=== PATIENT | female | born 1960 | race Caucasian/White ===

== ENCOUNTER 2023-11-16 15:39 | Emergency (ER) | payer OTHER ==
[2023-11-16 16:03] VITALS: TEMP 98
--- NOTE | 2023-11-16 17:23 | ED ---
ENT HPI - General Chief complaint: ENT Stated complaint: obstruction in throat Time Seen by Provider: 11/16/23 16:30 Source: patient, RN notes reviewed Mode of arrival: ambulatory Limitations: no limitations - History of Present Illness Initial comments: 63-year-old female presenting with foreign body sensation in throat x 2 days. States she was drinking tea with chopped up pine needles and shortly afterwards began to have sensation of something stuck in her throat. She has had trouble swallowing since then. She also has tenderness in the middle of her neck. Denies difficulty breathing or speaking. Denies nausea or vomiting. She has attempted carbonated beverages at home with no success - Related Data Allergies Allergy/AdvReac Type Severity Reaction Status Date / Time No Known Allergies Allergy Verified 11/16/23 16:03 Review of Systems ROS Statement: Those systems with pertinent positive or pertinent negative responses have been documented in the HPI. ROS Other: All systems not noted in ROS Statement are negative. Past Medical History Past Medical History: No Reported History History of Any Multi-Drug Resistant Organisms: None Reported Past Surgical History: Bladder Surgery, Section, Hernia Repair, Orthopedic Surgery, Tonsillectomy Past Psychological History: No Psychological Hx Reported Smoking Status: Never smoker Past Alcohol Use History: None Reported Past Drug Use History: None Reported General Exam Limitations: no limitations General appearance: alert, in no apparent distress Head exam: Present: atraumatic, normocephalic, normal inspection Eye exam: Present: normal appearance, PERRL, EOMI. Absent: scleral icterus, conjunctival injection, periorbital swelling ENT exam: Present: normal exam, normal oropharynx, mucous membranes moist Neck exam: Present: normal inspection, tenderness (There is point tenderness in the middle of neck. No skin changes, warmth, or overlying erythema). Absent: meningismus, lymphadenopathy Respiratory exam: Present: normal lung sounds bilaterally. Absent: respiratory distress, wheezes, rales, rhonchi, stridor Cardiovascular Exam: Present: regular rate, normal rhythm, normal heart sounds. Absent: systolic murmur, diastolic murmur, rubs, gallop, clicks GI/Abdominal exam: Present: soft, normal bowel sounds. Absent: distended, tenderness, guarding, rebound, rigid Course Vital Signs 11/16/23 11/16/23 15:59 19:19 Temperature 98 F Pulse Rate 71 76 Respiratory 18 16 Rate Blood Pressure 136/85 162/94 O2 Sat by Pulse 95 97 Oximetry Medical Decision Making - Medical Decision Making Was pt. sent in by a medical professional or institution (, [facility], HOME CARE SCHEDULER, urgent care, hospital, or long term...) When possible be specific @ -No Did you speak to anyone other than the patient for history (EMS, parent, family, police, friend...)? What history was obtained from this source @ -No Did you review nursing and triage notes (agree or disagree)? Why? @ -I reviewed and agree with nursing and triage notes Were old charts reviewed (outside hosp., previous admission, EMS record, old EKG, old radiological studies, urgent care reports/EKG's, long term records)? Report findings @ -No old charts were reviewed Differential Diagnosis (chest pain, altered mental status, abdominal pain women, abdominal pain men, vaginal bleeding, weakness, fever, dyspnea, syncope, headache, dizziness, GI bleed, back pain, seizure, CVA, palpatations, mental health, musculoskeletal)? @ -Foreign body of throat, retropharyngeal abscess, esophageal mass, strep pharyngitis EKG interpreted by me (3pts min.). @ -None X-rays interpreted by me (1pt min.). @ -X-ray of soft tissue of neck reveals 15 mm soft tissue density of indeterminate etiology, cannot exclude radiopaque foreign body and inferior aspect of oropharynx. CT interpreted by me (1pt min.). @ - CT revealed 5 mm mass suspected involving right aryepiglottic fold. Neoplasm not excluded and direct inspection is recommended U/S interpreted by me (1pt. min.). @ -None done What testing was considered but not performed or refused? (CT, X-rays, U/S, labs)? Why? @ -None What meds were considered but not given or refused? Why? @ -None Did you discuss the management of the patient with other professionals (professionals i.e. SHANTE Major, HOME CARE SCHEDULER, lab, RT, psych nurse, social services manager, biazzi nitrator operator, teacher, agricultural loan officer, case management assistant)? Give summary @ -I spoke with Dr. Ogden ER physician from [facility] who accepts ER to ER transfer at this time for throat mass. Patient will need ENT consultation and likely endoscopy. Was smoking cessation discussed for >3mins.? @ -No Was critical care preformed (if so, how long)? @ -No Were there social determinants of health that impacted care today? How? (Homelessness, low income, unemployed, alcoholism, drug addiction, trans portation, low edu. Level, literacy, decrease access to med. care, half-way, rehab)? @ -No Was there de-escalation of care discussed even if they declined (Discuss DNR or withdrawal of care, Hospice)? DNR status @ -No What co-morbidities impacted this encounter? (DM, HTN, Smoking, COPD, CAD, Cancer, CVA, ARF, Chemo, Hep., AIDS, mental health diagnosis, sleep apnea, morbid obesity)? @ -None Was patient admitted / discharged? Hospital course, mention meds given and route, prescriptions, significant lab abnormalities, going to OR and other pertinent info. @ -Patient was transferred to [facility] ER. Patient was seen and evaluated for foreign body sensation in throat x 2 days. Patient is able to tolerate secretions. Vital signs are stable. X-ray reveals 15 mm soft tissue density of indeterminate etiology, cannot exclude radiopaque foreign body in inferior aspect of oropharynx. CT then revealed 5 mm mass suspected involving right aryepiglottic fold, or neoplasm not excluded and direct inspection is recommended. I spoke with Dr. Ogden ER physician from [facility] who accepts ER to ER transfer at this time for throat mass. Patient will need ENT consultation and likely endoscopy. Patient is agreeable to plan at this time and opts for transfer via private vehicle. Case discussed with my attending Dr. Wing. Undiagnosed new problem with uncertain prognosis? @ -No Drug Therapy requiring intensive monitoring for toxicity (Heparin, Nitro, Insulin, Cardizem)? @ -No Were any procedures done? @ -No Diagnosis/symptom? @ -Mass in throat Acute, or Chronic, or Acute on Chronic? @ -Acute Uncomplicated (without systemic symptoms) or Complicated (systemic symptoms)? @ -Uncomplicated Side effects of treatment? @ -No Exacerbation, Progression, or Severe Exacerbation? @ -No Poses a threat to life or bodily function? How? (Chest pain, USA, NC, pneumonia, PE, COPD, DKA, ARF, appy, cholecystitis, CVA, Diverticulitis, Homicidal, Suicidal, threat to staff... and all critical care pts) @ -Yes - Lab Data Result diagrams: 11/16/23 18:07 11/16/23 18:07 Lab Results 11/16/23 11/16/23 Range/Units 18:07 18:07 WBC 7.8 (3.8-10.6) k/uL RBC 4.89 (3.80-5.40) m/uL Hgb 14.1 (11.4-16.0) gm/dL Hct 45.5 (34.0-46.0) % MCV 92.9 (80.0-100.0) fL MCH 28.8 (25.0-35.0) pg MCHC 31.0 (31.0-37.0) g/dL RDW 13.1 (11.5-15.5) % Plt Count 225 (150-450) k/uL MPV 8.1 Neutrophils % 64 % Lymphocytes % 21 % Monocytes % 7 % Eosinophils % 4 % Basophils % 1 % Neutrophils # 5.0 (1.3-7.7) k/uL Lymphocytes # 1.6 (1.0-4.8) k/uL Monocytes # 0.6 (0-1.0) k/uL Eosinophils # 0.4 (0-0.7) k/uL Basophils # 0.1 (0-0.2) k/uL Sodium 139 (137-145) mmol/L Potassium 4.0 (3.5-5.1) mmol/L Chloride 108 H (98-107) mmol/L Carbon Dioxide 26 (22-30) mmol/L Anion Gap 5 mmol/L BUN 17 (7-17) mg/dL Creatinine 0.69 (0.52-1.04) mg/dL Est GFR (CKD-EPI)AfAm >90 (>60 ml/min/1.73 sqM) Est GFR (CKD-EPI)NonAf >90 (>60 ml/min/1.73 sqM) Glucose 102 H (74-99) mg/dL Calcium 9.5 (8.4-10.2) mg/dL Total Bilirubin 0.4 (0.2-1.3) mg/dL AST 24 (14-36) U/L ALT 15 (4-34) U/L Alkaline Phosphatase 77 (38-126) U/L Total Protein 6.4 (6.3-8.2) g/dL Albumin 4.1 (3.5-5.0) g/dL Disposition Clinical Impression: Mass of throat Disposition: OTHER INSTITUTION NOT DEFINED Condition: Stable Referrals: Leo Rob DO [Primary Care Provider] - 1-2 days Time of Disposition: 20:10 - Out of Hospital Transfer - Req. Specs Out of Hospital Transfer - Requested Specifics: Other Emergency Center (Transferred to [facility] ER)
--- NOTE | 2023-11-16 17:32 | XR ---
Soft tissues neck. HISTORY: Foreign body sensation in throat. COMPARISON: TECHNIQUE: 2 views of the soft tissues neck were obtained including AP and lateral views. In the anterior aspect of the inferior aspect of the oropharynx there is a linear 15 mm soft tissue d ensity of indeterminate etiology. It could represent a type of foreign body. CT soft tissues of the neck would be useful for further evaluation. The retropharyngeal soft tissues are normal. There is no subglottic narrowing. There is no enlargemen t of the tonsils or uvula. The visualized osseous structures are intact. IMPRESSION: Cannot exclude radiopaque foreign body in the inferior aspect of the oropharynx as described above. I f clinically indicated, CT soft tissues neck might be useful for further evaluation.
[2023-11-16 18:26] LABS: Basophils # (A) 0.1 k/uL (0-0.2); Basophils % (A) 1 %; Eosinophils # (A) 0.4 k/uL (0-0.7); Eosinophils % (A) 4 %; HCT 45.5 % (34.0-46.0); HGB 14.1 gm/dL (11.4-16.0); Lymphocytes # (A) 1.6 k/uL (1.0-4.8); Lymphocytes % (A) 21 %; MCH 28.8 pg (25.0-35.0); MCV 92.9 fL (80.0-100.0); Mean Platelet Volume 8.1; Monocytes # (A) 0.6 k/uL (0-1.0); Monocytes % (A) 7 %; Neutrophils % (A) 64 %; Platelet Count 225 k/uL (150-450); RBC 4.89 m/uL (3.80-5.40); RDW 13.1 % (11.5-15.5); WBC 7.8 k/uL (3.8-10.6)
[2023-11-16 18:28] LABS: ALT 15 U/L (4-34); AST 24 U/L (14-36); African American GFR (CKD) >90 (>60 ml/min/1.73 sqM); Albumin 4.1 g/dL (3.5-5.0); Alkaline Phosphatase 77 U/L (38-126); Anion Gap 5 mmol/L; Blood Urea Nitrogen 17 mg/dL (7-17); Calcium 9.5 mg/dL (8.4-10.2); Carbon Dioxide 26 mmol/L (22-30); Chloride 108 mmol/L (98-107); Glucose 102 mg/dL (74-99); Non-African American GFR(CKD) >90 (>60 ml/min/1.73 sqM); Sodium 139 mmol/L (137-145); Total Bilirubin 0.4 mg/dL (0.2-1.3); Total Protein 6.4 g/dL (6.3-8.2)
--- NOTE | 2023-11-16 19:19 | CT ---
EXAMINATION TYPE: CT soft tissue neck w con DATE OF EXAM: 11/16/2023 7:07 PM COMPARISON: None HISTORY: Foreign body sensation, could not exclude on XR CT DLP: 275.5 mGycm Automated exposure control for dose reduction was used. CONTRAST: CT scan of the neck is performed following with IV Contrast, patient injected with 100 cc mL of Isovu e 300. Axial images are obtained, coronal and sagittal reformatted images are reviewed. FINDINGS: Findings: The thyroid gland is not enlarged and there are no focal masses. There is a 5 mm low-density nodular mass involving the right aryepiglottic fold in the region of the right vallecula. Neoplasm is not excluded and direct inspection is recommended. There are a few scatt ered lymph nodes measuring 1 cm less along short axis and therefore not consistent with lymphadenopat hy. The tongue base, epiglottis, aryepiglottic folds, piriform sinuses and vallecula are normal and symme tric. There is no oral or nasal pharyngeal or parapharyngeal or pharyngeal soft tissue mass or enhancement. The submandibular glands and parotid glands are normal and symmetric. The great vessels of the neck are normal. There is no adenopathy or abscess within the neck. Visualized osseous structures are intact. Small mucous retention cyst or polyp in the right maxillary sinus. IMPRESSION: 5 mm mass suspected involving the right aryepiglottic fold. Neoplasm is not excluded and direct inspe ction is recommended.
[2023-11-16 19:20] VITALS: BP 162/94; PULSE 76; RESP 16
== END 2023-11-16 20:28 | disposition other institution (70) ==
LOC: EC 15:39
DX: C13.1 Malignant neoplasm of aryepiglottic fold, hypopharyngeal aspect (principal); M79.9 Soft tissue disorder, unspecified
CPT/HCPCS: 36415; 80053; 85025; 70360; 70491; 99285; Q9967